=== PATIENT | male | born 1940 | race Caucasian/White ===

== ENCOUNTER 2017-01-15 09:04 | Inpatient (IN) | payer MEDICARE, BC ==
[~2017-01-15] VITALS: Ht 182.9 cm; Wt 79.8 kg
[2017-01-15] VITALS (25 sets, daily range): BP systolic 111–180; BP diastolic 59–87; PULSE 58–77; RESP 14–20; Ht 182.9 cm; Wt 79.8 kg
[~2017-01-15 09:04] MED LIST: CEFAZOLIN 1 GM INJ ONE
[2017-01-15] MEDS ORDERED: [UNRECOGNIZED DRUG - OTHER] ORAL (11:05)
[2017-01-15] MEDS ORDERED: NIFE30TA43 PO (11:05)
[2017-01-15] MEDS ORDERED: [UNRECOGNIZED DRUG - OTHER] ORAL (11:05)
[2017-01-15] MEDS ORDERED: BUPR75TA9 PO (11:05)
[2017-01-15] MEDS ORDERED: LOSA50TA6 PO (11:05)
[2017-01-15] MEDS ORDERED: FAMO-95 PO (11:05)
[2017-01-15] MEDS ORDERED: IBUP200C11 PO (11:05)
[2017-01-15] MEDS ORDERED: GELATIN SIZE 100 SPONGE ONE (11:20)
[2017-01-15] MEDS ORDERED: THROMBIN 5000 UNIT VIAL ONE (11:20)
[2017-01-15] MEDS ORDERED: BUPIVACAINE 0.25%/EPI (SDV) 30 ML INJ ONE (11:20)
[2017-01-15] MEDS ORDERED: SURGIFOAM POWDER 1 GM KIT ONE (11:20)
[2017-01-15] MEDS ORDERED: POLYMYXIN/BACITRACIN 1L IRRIG ONE (11:20)
[2017-01-15] MEDS ORDERED: PROPOFOL 20 ML ONE (12:07)
[2017-01-15] MEDS ORDERED: LIDOCAINE 2% (SDV) 5 ML INJ ONE (12:07)
[2017-01-15] MEDS ORDERED: SUCCINYLCHOLINE CHLORIDE 100 MG/5 ML SYG IV ONE (12:07)
[2017-01-15] MEDS ORDERED: FENTAnyl 50 MCG/ML VIAL ONE (12:08)
[2017-01-15] MEDS ORDERED: FAMOTIDINE 20 MG INJ ONE (12:22)
[2017-01-15] MEDS ORDERED: ONDANSETRON 4 MG INJ ONE (12:22)
[2017-01-15] MEDS ORDERED: DEXAMETHASONE 4 MG/ML 1 ML INJ ONE ×2 (12:22→15:04)
[2017-01-15] MEDS ORDERED: MIDAZOLAM 1 MG/ML 2 ML INJ ONE (12:36)
[2017-01-15] MEDS ORDERED: EPHEDrine SULFATE 50 MG/5 ML SYG ONE (12:51)
[2017-01-15] MEDS ORDERED: ROCURONIUM 50 MG INJ ONE (13:08)
[2017-01-15] MEDS ORDERED: HYDROmorphONE 2 MG/ML SYG ONE (14:19)
[2017-01-15] MEDS ORDERED: FENTAnyl 50 MCG/ML VIAL IV PRN (14:30)
[2017-01-15] MEDS ORDERED: hydrALAzine 20 MG INJ IV PRN (14:30)
[2017-01-15] MEDS ORDERED: ONDANSETRON 4 MG INJ IV PRN ×2 (14:30→16:00)
[2017-01-15] MEDS ORDERED: DIPHENHYDRAMINE 50 MG INJ IV PRN ×2 (14:30→16:00)
[2017-01-15] MEDS ORDERED: EPHEDrine SULFATE 50 MG/5 ML SYG IV PRN (14:30)
[2017-01-15] MEDS ORDERED: NEOSTIGMINE 3 MG/3 ML SYRINGE ONE ×2 (15:22)
[2017-01-15] MEDS ORDERED: GLYCOPYRROLATE 1 MG INJ ONE (15:22)
--- NOTE | 2017-01-15 15:42 | HPN ---
Date/Time of Note Date/Time of Note DATE: 01/15/17 TIME: 15:42 Interval H&P Admission Note Pt. seen H&P reviewed: No system changes JEY SHAY MD Jan 15, 2017 15:42
[2017-01-15] MEDS ORDERED: HYDROmorphONE 0.2 MG/ML PCA ONE (15:51)
[2017-01-15] MEDS ORDERED: ZOLPIDEM 5 MG TAB PO PRN (16:00)
[2017-01-15] MEDS ORDERED: AL HYDROX/MG HYDROX/SIMETH 30 ML CUP PO PRN (16:00)
[2017-01-15] MEDS ORDERED: CARISOPRODOL 350 MG TAB PO PRN (16:00)
[2017-01-15] MEDS ORDERED: ACETAMINOPHEN 325 MG TAB PO PRN (16:00)
[2017-01-15] MEDS ORDERED: HYDROmorphONE 1 MG/ML SYG IV PRN (16:00)
[2017-01-15] MEDS ORDERED: traMADol 50 MG TAB PO PRN (16:00)
[2017-01-15] MEDS ORDERED: HYDROmorphONE 0.2 MG/ML PCA IV SCH (16:00)
[2017-01-15] MEDS ORDERED: NALOXONE (0.4 MG/ML) INJ IV PRN (16:00)
[2017-01-15] MEDS ORDERED: BISACODYL 10 MG SUPP PR PRN (16:00)
[2017-01-15] MEDS: HYDROmorphONE (0.2 MG/ML) 10ML SYG IV PRN ×5 (16:06→16:48)
--- NOTE | 2017-01-15 16:21 | QN ---
Documentation Comment The patient was examined postoperatively in the recovery room. Cranial nerves appear to be intact. Tongue protrusion is symmetric. Smile is symmetric. He can close both eyes equally. Upper extremity examination is equal. He reported tingling over the [place] bilaterally but when the squeezers were removed he states that the tingling resolved distally in the lower extremities. he is neurologically intact. There are no signs of neurological deficits or stroke. He will continue to be monitored. JEY SHAY MD Jan 15, 2017 16:21
[2017-01-15 17:06] LABS: ADD UMIC YES; URINE BILIRUBIN (Dip) NEGATIVE (NEGATIVE); URINE BLOOD (Dip) TRACE (NEGATIVE); URINE COLOR LT. YELLOW (YELLOW); URINE GLUCOSE (Dip) NEGATIVE (NEGATIVE); URINE KETONES (Dip) NEGATIVE (NEGATIVE); URINE LEUKOCYTE ESTERASE (Dip) NEGATIVE (NEGATIVE); URINE NITRITE (Dip) NEGATIVE (NEGATIVE); URINE TOTAL PROTEIN (Dip) TRACE (NEGATIVE); URINE UROBILINOGEN (Dip) 0.2 E.U./dL (0.1-1.0)
--- NOTE | 2017-01-15 17:15 | RADRPT ---
PROCEDURE: ERCP. CLINICAL INDICATION: Intraoperative radiographs for placement of hardware for anterior cervical fu tom. TECHNIQUE: 8 Images were performed in the right upper abdomen. COMPARISON: No. FINDINGS: Fluoro time: 20.4 seconds mGy: 1.25 There are degenerative osteophytes in the cervical spine. An endotracheal tube is in place. The in itial imaged intrinsic no marker C5. Image 3 demonstrates a metal marker at C6. Image 4 demonstrat es markers along the ventral see areas of the C5-6 and C6-7 interspaces. Subsequent images demonstrate placement of biomechanical spacers at C6-7 and subsequently at C5-6. Imaging demonstrates subsequent placement anterior compression plate attached with lag screws to C5 and C7. IMPRESSION: 1. Intraoperative radiograph demonstrating planning for anterior cervical fusion with biomechanical spacers placed at C5-6 and C6-7. A metallic compression plate is noted ventral to the C5 C6 and C7 vertebra. RPTAT:AAJJ Physician Ivy Date Time Electronically viewed and signed by Physician Ivy on 01/15/2017 17:14 MAYA/
[2017-01-15 17:18] LABS: BACTERIA,URINE FEW; TRANSITIONAL EPI CELLS,URINE FEW
[2017-01-15] MEDS: CEFAZOLIN 1 GM/50 ML (PMX) 50 ML IVPB SCH (18:36)
[2017-01-15] MEDS: D5W-0.45 NACL + KCL 20 MEQ 1,000 ML IV SCH (18:36)
--- NOTE | 2017-01-15 18:54 | OPR ---
DATE OF OPERATION: 01/15/2017 PREOPERATIVE DIAGNOSES: C5-6, C6-7 cervical disk disease and stenosis with left cervical radiculopathy. POSTOPERATIVE DIAGNOSES: C5-6, C6-7 cervical disk disease and stenosis with left cervical radiculopathy. OPERATION PERFORMED 1. Anterior cervical diskectomy and spinal cord decompression at C5-6 and C6-7. 2. Placement of intervertebral biomechanical device at C5-6 and C6-7. 3. Anterior hardware placement at C5, C6, C7. 4. Use of allograft. 5. Use of C-arm fluoroscopy with interpretation without radiologist present. 6. Use of operative microscope. 7. Intraoperative neuromonitoring (2.5 hours). IMPLANTS: 1. NeuroStructure Transom 32 mm plate with 16 mm screws. 2. NeuroStructure Cavetto 5 x 16 x 18 mm lordotic cages x2. 3. Fibergraft. PRIMARY SURGEON: Jeronimo Nichole MD. PERFECT BINDER SETTER: APRIL Cooper. NEED FOR BEEF LUGGER: During this spinal surgical procedure, my sociology research assistant was used to retract and protect the spinal nerves and dural sac. My sociology research assistant also employed the suction catheters to evacuate blood from the surgical field to improve visualization of the neural structures. The sociology research assistant was medically necessary to facilitate the completion of the surgery in a safe and expeditious manner. State of [place] regulations, as well as hospital bylaws, preclude the use of non-licensed health care personnel, such as operating room technicians, to perform these functions. FINDINGS: Neuromonitoring at the start of the case revealed left C5 amplitude down 20%, left C6 amplitude down 60%, left C7 amplitude down 30%. At the end of the case, nerve signals returned to normal. The patient had stenosis at C5- 6 and C6-7 with a superimposed left-sided disk herniation at C5-6. ESTIMATED BLOOD LOSS: 40 mL. DRAINS: One. SPECIMENS: Disk was sent to Pathology. COMPLICATIONS OF PROCEDURES: None. ANESTHESIOLOGIST: Dr. Hutchinson. TYPE OF ANESTHESIA: General. INDICATIONS FOR PROCEDURE: This is 76-year-old gentleman with left cervical radiculopathy in the setting of stenosis and a disk herniation. He failed nonoperative measures, therefore, I recommended proceeding with the above- mentioned surgery. Preoperatively, we discussed the risks, benefits, and alternatives. He understood and wished to proceed. DESCRIPTION OF PROCEDURE IN DETAIL: The patient was identified in the preoperative holding area, given Ancef antibiotic, taken to the operating room, where he was successfully placed under general anesthesia. Neuromonitoring leads were placed, sequential compressive devices were applied. Mazariegos catheter was introduced. Neuromonitoring was utilized during the procedure for 2.5 hours to include SSEP, MEP, and EMG. This was performed by [email or web address]. Start time was 1 p.m. Closure time was 3:30 p.m. The patient was placed on the OR table in supine position. Towel rolls were placed behind the neck and between the scapular blades and the arms were tucked at the side and neck was extended. The neck was then prepped and draped in usual sterile fashion. Right -sided approach to the neck was made. The skin was incised. I then identified an interval between the sternocleidomastoid and strap muscles and I identified the anterior spine. I placed bent spinal needles into the appropriate disk spaces and took a lateral film to confirm the correct levels. Once this was confirmed, I subperiosteally dissected the longus colli musculature. Osteophytes were removed with a rongeur at C5-6 and C6-7. Self-retaining retractors were then placed. Anesthesiologist deflated and reinflated the endotracheal cuff. Microscope was brought in. A radical diskectomy was then performed at C5-6 and C6-7 using curettes, Kerrison punches and a high speed rachael. I decompressed the spinal cord and neural foramina bilaterally at both levels and removed the left-sided disk herniation at C5-6. I then placed various trials and chose the appropriate graft heights. I then took the PEEK cage within which I placed allograft and I impacted the intervertebral biomechanical device initially into the C6-7 level and then into the C5-6 level to complete the anterior fusion at both levels. I then placed the appropriate sized cervical plate anteriorly with 16 mm screws at C5, C6 and C7 bilaterally anteriorly. The wound was then copiously irrigated. Hemostasis achieved with Surgifoam. I took final AP and lateral images and I was happy with placement of the hardware and alignment of the spine. Nerve signals at this point were normal. I placed a deep drain and closed the platysma with a running 3-0 Vicryl stitch. I closed subcutaneous tissue with 2-0 Vicryl stitch. Dermabond and sterile dressings were then applied. The patient was awakened from anesthesia and taken to recovery room in stable condition. Lap, sponge, and instrument counts were correct x2. There were no apparent complications during this procedure. Vascular and internal medicine consults will be obtained postoperatively and if needed a cardiac consult will be obtained as well. The patient will be admitted to the orthopedic [facility] for routine postoperative care to include pain control, neurovascular checks, antibiotics, and physical therapy. Dictated By: JERONIMO FRITZ/SUKHWINDER Conf#: [id number] DID#: [id number] MTDD
[2017-01-15] MEDS: DOCUSATE SODIUM 100 MG CAP PO SCH (20:29)
--- NOTE | 2017-01-15 20:41 | CONS ---
DATE OF ADMISSION: 01/15/2017 DATE OF CONSULTATION: 01/15/2017 Thank you very much for allowing me to evaluate this 76-year-old male who is postop a cervical mell ectomy. HISTORICAL EVENTS: As you well know, this patient has had persistent pain involving his left should er and radicular left arm pain since November. Because of failure of conservative therapy to allow r esolution and following a cervical MRI and shoulder MRI, it was felt that surgical intervention appr opriate. Postoperatively, he notes resolution of his left shoulder pain. He denies cough, wheezing , shortness of breath, nausea, vomiting, abdominal or chest pain. PAST MEDICAL HISTORY: Includes: 1. Arthritis. 2. Low back pain. 3. History of hypertension. 4. Sleep apnea. 5. 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 ALLERGIES: INCLUDE DEMEROL. SOCIAL HISTORY: He is an assembly machine tender, , nonsmoker, nondrinker. PHYSICAL EXAMINATION: GENERAL: [place] male in no acute distress. VITAL SIGNS: BP 122/80, pulse 70, respirations 20, he was afebrile. EYES: Extraocular muscles were full. NOSE, MOUTH, AND THROAT: Normal. NECK: Supple. There was no jugular venous distention, thyroid enlargement. LUNGS: Clear. HEART: Rhythm regular. No murmur. No third or fourth sound. ABDOMEN: Nontender. Liver and spleen were not palpable. No masses or tenderness were noted. EXTREMITIES: No edema, no calf tenderness. IMPRESSION: 1. Status post cervical laminectomy, stable. 2. History of hypertension. We will continue his antihypertensive therapy. 3. We will evaluate daily for signs and symptoms of thromboembolic disease. Dictated By: TIANA BANG MD MR/NTS Conf#: [id number] DID#: [id number] CC: JEY SHAY MD;*EndCC*
[2017-01-15] MEDS ORDERED: LABETALOL 200 MG TAB PO SCH (21:00)
[2017-01-16] VITALS (14 sets, daily range): BP systolic 111–192; BP diastolic 59–97; PULSE 66–87; RESP 18–20
[2017-01-16] MEDS: D5W-0.45 NACL + KCL 20 MEQ 1,000 ML IV SCH ×3 (01:39→21:39)
[2017-01-16] MEDS: CEFAZOLIN 1 GM/50 ML (PMX) 50 ML IVPB SCH ×2 (02:19→08:26)
[2017-01-16 05:04] LABS: ADD SCAN DIFF NO
[2017-01-16] MEDS: CEPASTAT LOZENGE MT PRN ×2 (05:13→15:31)
[2017-01-16 05:14] LABS: BASOPHILS % 0.1 % (0.0-2.0); EOSINOPHILS % 0.1 % (0.0-7.0); HEMATOCRIT 41.2 % (42.0-52.0); HEMOGLOBIN 13.9 g/dl (14.0-18.0); LYMPHOCYTES # 1.2 10^3/ul (0.8-2.9); LYMPHOCYTES % 9.6 % (15.0-51.0); MEAN CORPUSCULAR HGB CONC 33.7 g/dl (32.0-37.0); MEAN CORPUSCULAR VOLUME 88.8 fl (82.0-101.0); MEAN PLATELET VOLUME 10.7 fl (7.4-10.4); MONOCYTES % 8.3 % (0.0-11.0); NEUTROPHIL # 10.3 10^3/ul (1.6-7.5); NEUTROPHILS % 81.5 % (39.0-77.0); PLATELET COUNT 263 10^3/UL (140-415); RED BLOOD COUNT 4.64 10^6/ul (4.70-6.10); RED CELL DISTRIBUTION WIDTH 13.4 % (11.5-14.5); WHITE BLOOD COUNT 12.6 10^3/ul (4.8-10.8)
[2017-01-16 05:28] LABS: POTASSIUM 4.5 mmol/L (3.5-5.1)
[2017-01-16 05:31] LABS: CREATININE 0.86 mg/dl (0.61-1.24)
[2017-01-16 05:32] LABS: MAGNESIUM 1.9 mg/dl (1.7-2.5)
--- NOTE | 2017-01-16 07:10 | PN ---
Date/Time of Note Date/Time of Note DATE: 01/16/17 TIME: 07:08 Assessment/Plan Lines/Catheters IV Catheter Type (from Nrs): Peripheral IV Mazariegos in Place (from Nrs): Yes Assessment/Plan Assessment/Plan s/p cervical fusion elevated BP will d.c if cleared by PT and Dr. alan Subjective 24 Hr Interval Summary doing well, minimal left arm discomfort Exam/Review of Systems Vital Signs Vitals Vital Signs Date Time Temp Pulse Resp B/P Pulse Ox O2 Delivery O2 Flow Rate FiO2 01/16/17 06:04 71 20 156/77 97 Nasal Cannula 2.0 01/16/17 00:19 97.7 Intake and Output 01/15/17 01/15/17 01/16/17 15:00 23:00 07:00 Intake Total 1500 ml 50 ml 1370 ml Output Total 90 ml 15 ml 1700 ml Balance 1410 ml 35 ml -330 ml Exam Free Text/Dictation nvi, cn grossly intact Results Result Diagram: 01/16/17 0420 01/16/17 0420 JEY SHAY MD Jan 16, 2017 07:09
--- NOTE | 2017-01-16 08:05 | CONS ---
Date/Time of Note Date/Time of Note DATE: 01/16/17 TIME: 08:03 Assessment/Plan Assessment/Plan Additional Assessment/Plan 1. Stable post op cx laminectomy 2. Labile BP, improved as this am after giving 1 tello Clonidine 3. Rev with pt and ortho, can dc pending ability to void post gustafson removal, BP control, ambulation. Consultation Date/Type/Reason Admit Date/Time Jan 15, 2017 at 09:04 Initial Consult Date Detailed Summary Respiratory: No cough, No shortness of breath Cardiovascular: No chest pain Gastrointestinal: no complaints Genitourinary: other (foey in place) Musculoskeletal: neck pain (moderate, ablel to swallow liquids) Exam/Review of Systems Vital Signs Vitals Vital Signs Date Time Temp Pulse Resp B/P Pulse Ox O2 Delivery O2 Flow Rate FiO2 01/16/17 06:04 71 20 156/77 97 Nasal Cannula 2.0 01/16/17 00:19 97.7 Intake and Output 01/15/17 01/15/17 01/16/17 15:00 23:00 07:00 Intake Total 1500 ml 50 ml 1370 ml Output Total 90 ml 15 ml 1700 ml Balance 1410 ml 35 ml -330 ml Exam Respiratory: clear to auscultation Cardiovascular: regular rate and rhythm Gastrointestinal: soft Extremities: No edema (adn no calf tend) Results Result Diagram: 01/16/17 0420 01/16/17 0420 Results 24 hrs Laboratory Tests Test 01/15/17 14:45 01/16/17 04:20 Urine Bacteria FEW Urine Bilirubin NEGATIVE Urine Clarity CLEAR Urine Color LT. YELLOW Urine Glucose NEGATIVE Urine Hemoglobin TRACE Urine Ketones NEGATIVE Urine Leukocyte Esterase NEGATIVE Urine Microscopic RBC 10-25 Urine Microscopic WBC 0-2 Urine Nitrite NEGATIVE Urine Specific [place] 1.015 Urine Total Protein TRACE Urine Transitional Epithelial Cells FEW Urine Urobilinogen 0.2 E.U./dL Urine pH 8.5 Anion Gap 16 Basophils # 0.0 Basophils % 0.1 Blood Urea Nitrogen 18 Calcium Level 9.0 Carbon Dioxide Level 28 Chloride Level 100 Creatinine 0.86 Eosinophils # 0.0 Eosinophils % 0.1 Glucose Level 138 Hematocrit 41.2 L Hemoglobin 13.9 L Lymphocytes # 1.2 Lymphocytes % 9.6 L Magnesium Level 1.9 Mean Corpuscular Hemoglobin 30.0 Mean Corpuscular Hemoglobin Concent 33.7 Mean Corpuscular Volume 88.8 Mean Platelet Volume 10.7 H Monocytes # 1.0 H Monocytes % 8.3 Neutrophils # 10.3 H Neutrophils % 81.5 H Nucleated Red Blood Cells # 0.0 Nucleated Red Blood Cells % 0.0 Platelet Count 263 Potassium Level 4.5 Red Blood Count 4.64 L Red Cell Distribution Width 13.4 Sodium Level 139 White Blood Count 12.6 H Medications Medications Current Medications Potassium Chloride/Dextrose/ Sod Cl (D5-1/2ns + KCl 20 Meq) 1,000 ml @ 100 mls/ hr Q10H IV Last administered on 01/16/17 05:13; Admin Dose 100 MLS/HR; Start 01/15/17 at 15:39 Tramadol HCl (Ultram) 50 mg Q4H PRN PO PAIN LEVEL 1-5; Start 01/15/17 at 16:00 Tramadol HCl (Ultram) 100 mg Q4H PRN PO PAIN LEVEL 6-10; Start 01/15/17 at 16: 00 Hydromorphone HCl 0.2 mg 0.2 mg Q1H PRN IV BREAKTHROUGH PAIN; Start 01/15/17 at 16:00 Cefazolin Sodium (Ancef 1 Gm/50 ml (Pmx)) 50 ml @ 100 mls/hr Q8H IVPB Last administered on 01/16/17 02:19; Admin Dose 100 MLS/HR; Start 01/15/17 at 16:00 ; Stop 01/16/17 at 08:29 Ondansetron HCl (Zofran Inj) 4 mg Q6H PRN IV NAUSEA AND/OR VOMITING Last administered on 01/15/17 20:36; Admin Dose 4 MG; Start 01/15/17 at 16:00 Bisacodyl (Dulcolax Supp) 10 mg DAILY PRN [place] CONSTIPATION; Start 01/15/17 at 16 :00 Docusate Sodium (Colace) 100 mg BID PO Last administered on 01/15/17 20:29; Admin Dose 100 MG; Start 01/15/17 at 21:00 Al Hydrox/Mg Hydrox/Simethicone (Mag-Al Plus) 15 ml Q6H PRN PO CONSTIPATION/ DYSPEPSIA; Start 01/15/17 at 16:00 Acetaminophen (Tylenol Tab) 650 mg Q4H PRN PO BOSE OR TEMP GREATER THAN 101.3F; Start 01/15/17 at 16:00 Carisoprodol (Soma) 350 mg TID PRN PO MUSCLE SPASMS; Start 01/15/17 at 16:00 Phenol (Cepastat Lozenge) 1 lozenge PRN PRN [place] SORE THROAT Last administered on 01/16/17 05:13; Admin Dose 1 LOZENGE; Start 01/15/17 at 16:00 Diphenhydramine HCl (Benadryl) 25 mg Q6H PRN IV ITCHING; Start 01/15/17 at 16: 00 Naloxone HCl (Narcan) 0.2 mg Q2M PRN IV RR 8 BREATHS/MIN OR LESS; Start at 16:00 Hydromorphone HCl (Dilaudid PIECE GOODS PACKER) PIECE GOODS PACKER to be started in PACU Q4PCA IV Last administered on 01/15/17 16:05; Admin Dose 6 MG; Start 01/15/17 at 16:00 Miscellaneous Information 1. Hold PIECE GOODS PACKER at 1,000... PIECE GOODS PACKER IV ; Start 01/15/17 at 16: 00 Losartan Potassium (Cozaar) 50 mg DAILY PO ; Start 01/16/17 at 09:00 Nifedipine (Procardia Xl) 30 mg DAILY PO ; Start 01/16/17 at 09:00 Labetalol HCl (Normodyne) 200 mg HS PO Last administered on 01/15/17 20:30; Admin Dose 200 MG; Start 01/15/17 at 21:00 Clonidine (Catapres) 0.1 mg Q8 PO Last administered on 01/16/17 01:30; Admin Dose 0.1 MG; Start 01/16/17 at 01:30 TIANA BANG MD Jan 16, 2017 08:05
[2017-01-16] MEDS: NIFEdipine (XL) 30 MG TAB PO SCH (08:27)
[2017-01-16] MEDS: DOCUSATE SODIUM 100 MG CAP PO SCH ×2 (08:27→21:18)
[2017-01-16] MEDS ORDERED: LOSARTAN 50 MG TAB PO SCH (09:00)
[2017-01-16] MEDS: traMADol 50 MG TAB PO PRN ×3 (10:24→21:17)
[2017-01-16] MEDS ORDERED: LABETALOL 100 MG TAB PO ONE (11:00)
[2017-01-16] MEDS ORDERED: LOSARTAN 50 MG TAB PO ONE (11:00)
[2017-01-16] MEDS: LORAZEPAM 1 MG TAB PO SCH (11:05)
[2017-01-16] MEDS: LABETALOL 200 MG TAB PO SCH (21:18)
[2017-01-17] MEDS: D5W-0.45 NACL + KCL 20 MEQ 1,000 ML IV SCH (07:39)
[2017-01-17] MEDS: traMADol 50 MG TAB PO PRN (07:58)
[2017-01-17 08:19] VITALS: BP 116/65; RESP 18
--- NOTE | 2017-01-17 08:26 | CONS ---
Date/Time of Note Date/Time of Note DATE: 01/17/17 TIME: 08:24 Assessment/Plan Assessment/Plan Additional Assessment/Plan 1. Post op cx spine surgery with left arm radic pain still present, will rev with ortho 2. BP now well controlled 3. Can dc if ok with ortho and PT Consultation Date/Type/Reason Admit Date/Time Jan 15, 2017 at 09:04 Detailed Summary Respiratory: No shortness of breath Cardiovascular: No chest pain, No orthopenea Gastrointestinal: no complaints Genitourinary: no complaints Musculoskeletal: neck pain (mild and c/o rad pain left arm) Exam/Review of Systems Vital Signs Vitals Vital Signs Date Time Temp Pulse Resp B/P Pulse Ox O2 Delivery O2 Flow Rate FiO2 01/17/17 08:19 97.5 64 18 116/65 92 01/16/17 21:23 Room Air 01/16/17 11:14 2.0 Intake and Output 01/16/17 01/16/17 01/17/17 15:00 23:00 07:00 Intake Total 550 ml 580 ml 450 ml Balance 550 ml 580 ml 450 ml Exam Neck: other (collar in place) Respiratory: clear to auscultation Cardiovascular: regular rate and rhythm Gastrointestinal: soft Extremities: No edema (and no calf tend) Results Result Diagram: 01/16/1741901/16/17 042 Medications Medications Current Medications Potassium Chloride/Dextrose/ Sod Cl (D5-1/2ns + KCl 20 Meq) 1,000 ml @ 100 mls/ hr Q10H IV Last administered on 01/16/17 05:13; Admin Dose 100 MLS/HR; Start 01/15/17 at 15:39 Tramadol HCl (Ultram) 50 mg Q4H PRN PO PAIN LEVEL 1-5; Start 01/15/17 at 16:00 Tramadol HCl (Ultram) 100 mg Q4H PRN PO PAIN LEVEL 6-10 Last administered on 07:58; Admin Dose 100 MG; Start 01/15/17 at 16:00 Hydromorphone HCl (Dilaudid) 0.2 mg Q1H PRN IV BREAKTHROUGH PAIN; Start at 16:00 Ondansetron HCl (Zofran Inj) 4 mg Q6H PRN IV NAUSEA AND/OR VOMITING Last administered on 01/15/17 20:36; Admin Dose 4 MG; Start 01/15/17 at 16:00 Bisacodyl (Dulcolax Supp) 10 mg DAILY PRN [place] CONSTIPATION; Start 01/15/17 at 16 :00 Docusate Sodium (Colace) 100 mg BID PO Last administered on 01/16/17 21:18; Admin Dose 100 MG; Start 01/15/17 at 21:00 Al Hydrox/Mg Hydrox/Simethicone (Mag-Al Plus) 15 ml Q6H PRN PO CONSTIPATION/ DYSPEPSIA; Start 01/15/17 at 16:00 Acetaminophen (Tylenol Tab) 650 mg Q4H PRN PO BOSE OR TEMP GREATER THAN 101.3F; Start 01/15/17 at 16:00 Carisoprodol (Soma) 350 mg TID PRN PO MUSCLE SPASMS; Start 01/15/17 at 16:00 Phenol (Cepastat Lozenge) 1 lozenge PRN PRN MT SORE THROAT Last administered on 01/16/17 15:31; Admin Dose 1 LOZENGE; Start 01/15/17 at 16:00 Diphenhydramine HCl (Benadryl) 25 mg Q6H PRN IV ITCHING Last administered on 22:25; Admin Dose 25 MG; Start 01/15/17 at 16:00 Naloxone HCl (Narcan) 0.2 mg Q2M PRN IV RR 8 BREATHS/MIN OR LESS; Start at 16:00 Hydromorphone HCl (Dilaudid OPTOMETRIST ASSISTANT) OPTOMETRIST ASSISTANT to be started in PACU Q4PCA IV Last administered on 01/15/17 16:05; Admin Dose 6 MG; Start 01/15/17 at 16:00 Miscellaneous Information 1. Hold OPTOMETRIST ASSISTANT at 1,000... OPTOMETRIST ASSISTANT IV ; Start 01/15/17 at 16: 00 Nifedipine (Procardia Xl) 30 mg DAILY PO Last administered on 01/16/17 08:27; Admin Dose 30 MG; Start 01/16/17 at 09:00 Clonidine (Catapres) 0.1 mg Q8 PO Last administered on 01/16/17 10:15; Admin Dose 0.1 MG; Start 01/16/17 at 01:30 Labetalol HCl (Normodyne) 200 mg BID PO Last administered on 01/16/17 21:18; Admin Dose 200 MG; Start 01/16/17 at 21:00 Losartan Potassium (Cozaar) 100 mg DAILY PO ; Start 01/17/17 at 09:00 Lorazepam (Ativan) 1 mg DAILY PO Last administered on 01/16/17 11:05; Admin Dose 1 MG; Start 01/16/17 at 11:00 TIANA BANG MD Jan 17, 2017 08:26
[2017-01-17] MEDS: DOCUSATE SODIUM 100 MG CAP PO SCH (08:31)
[2017-01-17] MEDS: LORAZEPAM 1 MG TAB PO SCH (08:31)
[2017-01-17] MEDS: LABETALOL 200 MG TAB PO SCH (08:34)
[2017-01-17] MEDS: NIFEdipine (XL) 30 MG TAB PO SCH (08:34)
--- NOTE | 2017-01-17 08:37 | PN ---
Date/Time of Note Date/Time of Note DATE: 01/17/17 TIME: 08:36 Assessment/Plan Lines/Catheters IV Catheter Type (from Nrsg): Saline Lock Mazariegos in Place (from Nrsg): No Assessment/Plan Assessment/Plan MRI C-spine w/ w/o contrast and CT C-spine today BP management per Dr. Gupta Subjective 24 Hr Interval Summary pt c/o left arm pain Exam/Review of Systems Vital Signs Vitals Vital Signs Date Time Temp Pulse Resp B/P Pulse Ox O2 Delivery O2 Flow Rate FiO2 01/17/17 08:19 97.5 64 18 116/65 92 01/16/17 21:23 Room Air 01/16/17 11:14 2.0 Intake and Output 01/16/17 01/16/17 01/17/17 15:00 23:00 07:00 Intake Total 550 ml 580 ml 450 ml Balance 550 ml 580 ml 450 ml Exam Free Text/Dictation NVI incision c/d/i Results Result Diagram: 01/16/17 0420 01/16/17 0420 VERÓNICA PRUETT PA-C Jan 17, 2017 08:37
[2017-01-17] MEDS ORDERED: LOSARTAN 50 MG TAB PO SCH (09:00)
[2017-01-17] MEDS ORDERED: DEXAMETHASONE 10 MG/ML 1 ML INJ IV ONE (09:00)
--- NOTE | 2017-01-17 10:56 | RADRPT ---
PROCEDURE: CT Cervical Spine. CLINICAL INDICATION: Severe left arm pain. Status post cervical spine fusion . TECHNIQUE: A CT of the cervical spine was performed on a [employer] 64-slice CT scanner utilolooki ng high-resolution axial imaging from the skull base through the cervical thoracic junction. Sagitt al, coronal, and multiplanar reformatted images were made. CTD I: 22.20 mGy and DLP: 471.48 mGy-cm One or more of the following dose reduction techniques were used: Automated exposure control. Adjustment of the mA and/or kV according to patient size. Use of iterative reconstruction technique. COMPARISON: None FINDINGS: There is a normal lordosis of the cervical spine. No vertebral body subluxation is seen. No fractu res are evident. The posterior elements are normally aligned. The surrounding soft tissues are nor mal in appearance. There are postsurgical changes of ACDF at C5-C7 with interbody disk spacers at C5 -C6 and C6-C7. The hardware is in appropriate position. There are mild degenerative changes at the atlantoaxial joint. Multiple pockets of gas in the soft tissues of the left lateral neck with no ev idence of fluid collection. C2-C3: The disk height is maintained. There is mild uncovertebral spurring and facet arthropathy. The central canal and bilateral neural foramina are adequately patent. C3-C4: There is mild disk height loss. Disk osteophyte complex, prominent left-sided uncovertebral spurring and mild to moderate left and minimal right facet arthropathy are seen at this level. The re is severe left neural foraminal stenosis. The central canal and right neural foramen are adequat ai patent. C4-C5: The disk height is maintained. Disk osteophyte complex, prominent right-sided uncovertebral spurring with moderate right facet arthropathy are seen at this level. There is severe right neura l foraminal stenosis. The central canal and left neural foramen are adequately patent. C5-C6: Fusion level. Disk osteophyte complex, prominent uncovertebral spurring and mild facet arth ropathy are seen at this level. There is moderate to severe bilateral neural foraminal stenosis. T here is mild to moderate central canal stenosis. C6-C7: Fusion level. Disk osteophyte complex, prominent bilateral uncovertebral spurring and mild facet arthropathy are seen at this level. There is severe left and moderate to severe right neural foraminal stenosis. There is mild to moderate central canal stenosis.. C7-T1: The disk height is maintained. There is a prominent right-sided uncovertebral spurring resu lting in moderate right neural foraminal stenosis. The central canal and left neural foramen are ad equately patent. IMPRESSION: 1. Status post ACDF at C5-C6 and C6-C7. The hardware is intact and in appropriate position. 2. Multilevel cervical spondylosis with associated moderately severe neural foraminal stenosis incl uding left C3-C4, right C4-C5, and bilateral C5-C6 and C6-C7. 3. Mild to moderate central canal stenosis at C5-C6 and C6-C7. RPTAT: BB .Meek Garcia MD, MD Date Time Electronically viewed and signed by .Meek Garcia MD, on 01/17/2017 10:56 .O/
--- NOTE | 2017-01-17 11:52 | RADRPT ---
PROCEDURE: MR Cervical Spine with and without contrast. CLINICAL INDICATION: Neck pain and stiffness radiating to the left shoulder. TECHNIQUE: An MRI of the cervical spine was performed on a [employer] 1.5 evette scanner utilizing the foll owing sequences: Pre and postcontrast sagittal and axial T1 weighted, sagittal and axial T2 weighted , and sagittal T2 weighted with fat saturation. 10 cc of Magnevist were given intravenously without complication. COMPARISON: CT c-spine 01/17/2017. FINDINGS: There is maintenance of the normal vertebral body height and alignment with preservation of a normal cervical lordosis. There are postsurgical changes of ACDF at C5-C7. There is minimal prevertebral soft tissue edema at C3 through C5. The craniocervical and cervical medullary junctions are unremar kable. The cervical cord is normal in caliber and signal intensity. The paravertebral soft tissues a re unremarkable. There is no epidural fluid collection. C2-C3: The disk height is maintained. The central canal and bilateral neural foramina are adequate ly patent. C3-C4: The disk height is maintained. There is mild disk desiccation. There is a prominent left p osterolateral disk osteophyte resulting in mild asymmetric central canal stenosis. There is severe left neural foraminal stenosis. C4-C5: There is mild disk height loss with disk desiccation. Disk osteophyte complex, prominent ri ght-sided uncovertebral spurring with mild facet arthropathy are seen at this level. There is moder ately severe right neural foraminal stenosis. There is mild left neural foraminal stenosis. There is mild central canal stenosis. C5-C6: Disk osteophyte complex, prominent uncovertebral spurring and mild facet arthropathy are see n at this level. There is moderate to severe bilateral neural foraminal stenosis. There is mild to moderate central canal stenosis. C6-C7: Disk osteophyte complex, prominent uncovertebral spurring with mild facet arthropathy are se en at this level. There is moderately severe bilateral neural foraminal stenosis. There is mild to moderate central canal stenosis. C7-T1: The disk height is maintained. The central canal and bilateral neural foramina are adequate ly patent. IMPRESSION: 1. Status post ACDF at C5-C7. Minimal prevertebral soft tissue edema at C3-C5. No fluid collection is identified. 2. No epidural fluid collection. Normal caliber cervical spinal cord with no abnormal signal. 3. Mild to moderate central canal stenosis at C5-C6 and C6-C7. Mild asymmetric central canal stenos is at C3-C4. 4. Moderately severe multilevel neural foraminal stenosis at C3-C4 through C6-C7, as detailed above . RPTAT: BB .Meek Garcia MD, Date Time Electronically viewed and signed by .Meek Garcia MD, on 01/17/2017 11:52 .O/
--- NOTE | 2017-01-17 13:14 | DS ---
DATE OF ADMISSION: 01/15/2017 DATE OF DISCHARGE: 01/17/2017 ADMITTING DIAGNOSIS: Cervical stenosis. DISCHARGE DIAGNOSIS: Cervical stenosis. PROCEDURE: The patient was taken to the operating room on January 15 and underwent ACDF. HOSPITAL COURSE: The patient admitted to [facility] after undergoing above procedure. For the first 2 postoperative days. His blood pressure was little elevated, and therefore he was not stabl e for discharge. His left arm tingling improved, but he continued to have pain, and therefore prior to discharge, I obtained an MRI and a CAT scan of the neck which showed no hematoma. I gave him a dose of steroids. He has noticed improvement in the arm, and therefore he was deemed stable for dis charge with followup arranged with the undersigned. Dictated By: JEY FRITZ/SUKHWINDER Conf#: [id number] DID#: [id number]
== END 2017-01-17 13:43 | disposition home or self-care (01) | DRG 473 ==
LOC: REC 09:04 → MS1 17:00
PROVIDERS: ADMIT Specialist; ATTEND Specialist
PROC: 0RB30ZZ Excision of Cervical Vertebral Disc, Open Approach (ICD-10-PCS; 2017-01-15)
PROC: 4A11X4G Monitoring of Peripheral Nervous Electrical Activity, Intraoperative, External Approach (ICD-10-PCS; 2017-01-15)
PROC: 0RG20A0 Fusion of 2 or more Cervical Vertebral Joints with Interbody Fusion Device, Anterior Approach, Anterior Column, Open Approach (ICD-10-PCS; principal; 2017-01-15 12:00)
DX: M48.02 Spinal stenosis, cervical region (principal); I10 Essential (primary) hypertension; G47.30 Sleep apnea, unspecified; Z88.6 Allergy status to analgesic agent
CPT/HCPCS: 72050; 72125; 72156; 80048; 81001; 81003; 83735; 85025; 86850; 86900; 86901; 87086; 88304; 97116; 97162; 97530; C1713; J0330; J0690; J1100; J1170; J1200; J2250; J2405; J2710; J3010; J3480